=== PATIENT | female | born 1995 | race Caucasian/White ===

== ENCOUNTER 2020-05-07 01:15 | Day surgery (SDC) | payer BC, OTHER, SELFPAY ==
[2020-05-06 16:28] VITALS: BMI 27.1
--- NOTE | 2020-05-06 22:17 | P.HP_ITS ---
H&P: HPI History of Present Illness Chief complaint: Missed AB Narrative: 24 y/o G1 with LMP 03/04/20, putting her at 9 weeks gestation. She began to have heavy vaginal bleeding on 05/06/20, with cramping and passage of small clots. Ultrasound exam in the office demonstrates an intrauterine amnion and yolk sac, but no obvious embryo and no FHR. She is interested in surgical management of her problem. Review of Systems Review of Systems: All systems reviewed & are unremarkable except as noted in HPI and below PMFSH Family History Family History Grandparent Acute myocardial infarction Family history of malignant neoplasm Family history of Alzheimer's disease Family history of malignant neoplasm of breast in first degree relative Social History Social History Smoking status: Never smoker Alcohol intake: current Meds Home Medications and Allergies Home Medications Medication Instructions Recorded Confirmed Type No Home Medications 05/06/20 05/06/20 History Allergies Allergy/AdvReac Type Severity Reaction Status Date / Time latex Allergy Unknown Swelling Verified 05/06/20 16:23 Exam Const: Orientation/consciousness: patient oriented x3 Other: Well- developed, well-nourished female in no acute distress. Neck: Thyroid: thyroid normal Lymphatic: no lymphadenopathy noted (in neck, axilla or inguinal nodes) Resp: Effort & Inspection: normal respiratory effort Auscultation: clear to auscultation bilaterally Cardio: Rate: regular rate Rhythm: regular rhythm Heart sounds: S1 normal heart sound present and S2 normal heart sound present GI: Other: ABD: Soft, nontender, nondistended. No guarding or rebound tenderness. No hepatosplenomegaly. : General: Yes no CVA tenderness Other: External genitalia: normal female hair distribution, without lesion. Urethral meatus: no lesion, non prolapsed. Bladder: no mass, nontender Vagina: well-estrogenized, no cystocele or rectocele. Dark blood is noted. Cervix: closed to digital exam. Uterus: small, anteverted, freely mobile, nontender Adnexa: no mass or tenderness. Anus/perineum: no lesions, nontender Back/Spine/Pelvis: Back: no CVA tenderness Skin: General skin exam: normal color and no rashes or lesions noted Neuro: General: patient oriented x3 Extrem: Other: Extremities: nontender with no edema Psych: Mental Status: mental status grossly normal Affect: normal affect Assessment and Plan Assessment and plan (1) Incomplete spontaneous : Code(s): O03.4 - Incomplete spontaneous without complication Status: Acute Assessment and Plan: I offered her expectant management versus suction D&C. She prefers the latter. She understands risks of surgery to include risks of anesthesia, risks of pain, infection, bleeding, blood products, thromboembolic phenomena and damage to adjacent structures such as bowel, bladder, ureters, blood vessels and nerves. She understands all these risks and elects to proceed with surgery.
[2020-05-07 14:31] VITALS: BP 113/61; PULSE 76; RESP 16; TEMP 36.8; O2SAT 100
[2020-05-07] MEDS: LACTATED RINGERS 1,000 ML 30 ML IV CONT (14:45)
--- NOTE | 2020-05-07 15:01 | WPDHPUPDATE1 ---
History and Physical Update Update Date/Time: 05/07/20 15:01 History and Physical has been reviewed, including an updated exam of the patient. There are NO changes in the patient's condition. Risks, benefits, and alternatives have been discussed and questions answered. Patient agrees to proceed with procedure.
--- NOTE | 2020-05-07 15:01 | WPDANESEPPF ---
Anes - Initial Pre Proc Eval Procedure: Operation Date: 05/07/20 14:30 Proposed Procedures p Suction Dilation And Curettage - Milind Gómez MD Date/Time: 05/07/20 15:01 Surgeon: Milind Gmóez MD Pre Op Diagnosis: Missed AB Patient Data Age: 24 Gender: F Height: 1.63 m Weight: 71.67 kg Allergies Allergy/AdvReac Type Severity Reaction Status Date / Time latex Allergy Unknown Swelling Verified 05/06/20 16:23 Home Medications Medication Instructions Recorded Confirmed Type hydrocodone-acetaminophen [[place]] 1 tablet PO Q6H PRN #20 tablet 05/07/20 Rx Patient hx anesthesia problems: none Family hx anesthesia problems: none PMFSH Family History Family History Grandparent Acute myocardial infarction Family history of malignant neoplasm Family history of Alzheimer's disease Family history of malignant neoplasm of breast in first degree relative Social History Social History Smoking status: Never smoker Alcohol intake: current Anes - Eval Final PreProcedure Day of Procedure 05/07/20 15:01 Patient weight: overweight Heart: regular rate and rhythm Lungs: clear to auscultation and normal air movement Airway: Mallampati scale class 1 Neurological: alert and oriented Last oral intake: >/= 8 hours ASA classification: I Emergent: no Anesthetic plan: proceed Anesthesia type and monitoring: general GIVS and standard monitoring Informed Consent: The patient's anesthetic plan and its attendant risks and benefits were discussed with the patient/family/POA. Questions were solicited and answers provided to the satisfaction of the patient/family/POA.
[2020-05-07] MEDS: KETOROLAC 30 MG/ML VIAL (*BKC) IV PUSH (15:28)
--- NOTE | 2020-05-07 15:29 | P.OP_ITS ---
Procedure Note - Detailed Date of procedure: 05/07/20 Pre-op diagnosis: Missed AB Incomplete spontaneous Post-op diagnosis: same Procedure performed: Dilation and suction curettage Description of procedure: The patient was taken to the operating room where she was prepared and draped in the usual sterile fashion in the dorsal lithotomy position. The bladder was drained with a red rubber catheter. A sterile speculum was placed into the vagina. The anterior lip of the cervix was grasped with a single-tooth tenaculum. Ten mL of 1% lidocaine was administered in a paracervical block. The cervix was gently dilated using Hegar dilators until an 8mm dilator could be passed. The 8mm curved tip suction curette was advanced. Suction curettage was performed and products of conception were aspirated. Sha rp curettage was then performed until a good uterine cry was noted. A final pass with the suction curette was made. The tenaculum was removed. Hemostasis was excellent. Sponge, lap, needle and instrument counts were correct. The patient was taken to the recovery room in stable condition. I was present and scrubbed for the entire procedure. Implants: None Anesthesia: MAC and local (1% lidocaine) Surgeon: Milind Gómez MD Estimated blood loss (mL): 50 Drains: No Packing: No Pathology: yes (endometrial curettings) Complications: None Condition: stable Disposition: PACU Findings: The cervix was noted already to be dilated. Products of conception we re noted.
--- NOTE | 2020-05-07 15:34 | SUR.OPER ---
EBL:50cc
[2020-05-07 15:38] VITALS: BP 107/66; PULSE 76; RESP 12; TEMP 36.6; O2SAT 100
[2020-05-07 16:10] VITALS: BP 103/80; PULSE 72; RESP 16; O2SAT 100
[2020-05-07] MEDS: RHO(D) IMMUNE GLOBULIN 300 MCG SYRINGE IM (16:38)
[2020-05-07 16:40] VITALS: BP 108/53; PULSE 57; RESP 16
--- NOTE | 2020-05-07 17:24 | SUR.PHASEII ---
1630- instructions reviewed with pt. no c/o pain.
== END 2020-05-07 16:55 | disposition home or self-care (01) ==
PROVIDERS: PCP Family Medicine; Visit Provider Obstetrics & Gynecology
PROC: (CPT 59812; principal; 2020-05-07 14:30)
DX: O03.4 Incomplete spontaneous abortion without complication (principal)
CPT/HCPCS: 59812; 36415; 85461; 88305; 90384; A9270; J1885; J2250; J2704; J2790; J3010; J7120

== ENCOUNTER 2020-07-22 12:02 | Outpatient (CLI) | payer BC, OTHER, SELFPAY ==
--- NOTE | ~2020-07-22 | US_ITS ---
EXAMINATION: US OB <=14 wk fetus w TV DATE: 07/22/2020 13:03 INDICATION: Threatened spontaneous , first trimester TECHNIQUE: Real-time pelvic transabdominal and transvaginal ultrasound was performed. COMPARISON: None. FINDINGS: The uterus measures 7.8 x 6.1 x 4.4 cm. There is an intrauterine gestational sac. A yolk s ac is identified. heart motion is identified measuring 102 beats per minute (bpm) by M-mode Dop pler. The crown rump length measures 3 mm , which correlates with an estimated gestational age of 5 weeks and 5 day(s) (+/-) 3 day(s). The right ovary measures 1.6 x 1.4 x 1.3 cm. The left ovary measures 3.4 x 1.7 x 2.2 cm. There is nor mal vascular flow in the ovaries. There is no free fluid in the pelvis. IMPRESSION: 1. Live intrauterine with an estimated gestational age of 5 weeks and 5 day(s) (+/-) 3 day( s) and an estimated delivery date of 03/19/2021. Reviewed, dictated and finalized at location A. IMPRESSION: 1. Live intrauterine with an estimated gestational age of 5 weeks and 5 day(s) (+/-) 3 day(s) and an estimated delivery date of 03/19/2021.
== END 2020-07-22 12:03 | disposition home or self-care (01) ==
PROVIDERS: Visit Provider Obstetrics & Gynecology
DX: O20.0 Threatened abortion (principal); Z3A.01 Less than 8 weeks gestation of pregnancy
CPT/HCPCS: 76801; 76817

== ENCOUNTER 2020-07-29 15:22 | Outpatient (RCR) | payer BC, OTHER, SELFPAY ==
[2020-07-30] MEDS: RHO(D) IMMUNE GLOBULIN 300 MCG SYRINGE IM (12:09)
== END 2020-10-27 23:59 | disposition home or self-care (01) ==
LOC: ANHLAB 15:22
PROVIDERS: Visit Provider Obstetrics & Gynecology
DX: O03.4 Incomplete spontaneous abortion without complication (principal); O36.0990 Maternal care for other rhesus isoimmunization, unspecified trimester, not applicable or unspecified; Z3A.00 Weeks of gestation of pregnancy not specified
CPT/HCPCS: 36415; 84702; 85461; 86880; 90384; 96372; J2790

== ENCOUNTER 2021-06-04 13:07 | Outpatient (RCR) | payer BC, SELFPAY ==
[2021-06-05] MEDS: RHO(D) IMMUNE GLOBULIN 300 MCG/2 ML SYRINGE IM (12:50)
== END 2021-09-02 23:59 | disposition home or self-care (01) ==
LOC: ANHLAB 13:07
PROVIDERS: Visit Provider Obstetrics & Gynecology
DX: Z29.13 Encounter for prophylactic Rho(D) immune globulin (principal); O36.0190 Maternal care for anti-D [Rh] antibodies, unspecified trimester, not applicable or unspecified; Z3A.00 Weeks of gestation of pregnancy not specified
CPT/HCPCS: 36415; 85461; 90384; 96372; J2790

== ENCOUNTER 2021-08-14 18:43 | Outpatient (CLI) | payer BC, SELFPAY ==
[2021-08-14 19:03] VITALS: BP 144/85; PULSE 114
[2021-08-14 19:16] VITALS: BP 149/75; PULSE 107
[2021-08-14 19:31] VITALS: BP 132/83; PULSE 105
[2021-08-14 19:52] VITALS: BP 132/83; PULSE 107
== END 2021-08-14 19:48 | disposition home or self-care (01) ==
LOC: ANHOBOP 18:47 → ANHLDR 18:48
PROVIDERS: Visit Provider Obstetrics & Gynecology
DX: O42.90 Premature rupture of membranes, unspecified as to length of time between rupture and onset of labor, unspecified weeks of gestation (principal); Z3A.00 Weeks of gestation of pregnancy not specified
CPT/HCPCS: 59025; 84112; 99199

== ENCOUNTER 2021-08-18 07:04 | Inpatient (IN) | payer BC, SELFPAY ==
[2021-08-18] VITALS (120 sets, daily range): BP systolic 83–201; BP diastolic 44–148; PULSE 46–161; RESP 18; TEMP 35.7–36.9; O2SAT 91–100
--- NOTE | 2021-08-18 07:31 | LDADM ---
This patient, Mihcaela Sun, was admitted to Labor/Delivery/Recovery 103 on 08/18/21 at 07:04. Plans for labor, pain management and were discussed with patient. Patient/family oriented to hospital policies and general routines including ID bracelet, bed and alarms, visiting hours, pain management, procedures, bathroom and other care routines, personal items, smoking policy, room service/diet and guest tray routines, security routines, and visiting hours. Patient/Family are encouraged to report perceived risks to care and to ask questions if they do not understand what they are told or what they should do. See OBIX for further documentation.
[2021-08-18 07:49] LABS: Basophils Percent Auto 0.3 % (0.2-1.2); Eosinophils Absolute Auto 0.1 K/mm3 (0-0.3); Eosinophils Percent Auto 1.3 % (0-4.4); Hematocrit 36.2 % (37.0-47.0); Hemoglobin 11.9 g/dL (12.0-15.0); Immature Granulocyte Absolute 0.13 K/mm3 (0.00-0.031); Immature Granulocyte Percent A 1.3 % (0-0.5); Lymphocytes Absolute Auto 2.48 K/mm3 (0.9-3.2); Lymphocytes Percent Auto 25.3 % (18.3-44.2); Mean Corpuscular HGB Conc 32.9 g/dl (32-36); Mean Corpuscular Hemoglobin 29.2 pg (26-34); Mean Corpuscular Volume 88.7 fl (80-100); Monocytes Absolute Auto 0.6 K/mm3 (0.1-0.6); Monocytes Percent Auto 5.7 % (2.6-8.5); Neutrophils Absolute Auto 6.5 K/mm3 (1.3-6.7); Neutrophils Percent Auto 66.1 % (45.5-73.1); Platelet Count Result 161 k/mm3 (150-375); Red Blood Count 4.08 M/mm3 (4.2-5.4); Red Cell Distribution Width 13.1 % (11.5-14.5); White Blood Count 9.8 K/mm3 (4.5-10.0)
[2021-08-18] MEDS: LACTATED RINGERS 1,000 ML 125 ML IV CONT ×2 (07:49→10:40)
[2021-08-18] MEDS: OXYTOCIN 30 UNITS/NS 500 ML 30 UNITS/500 ML BAG 125 UNITS IV CONT ×2 (07:50→15:40)
--- NOTE | 2021-08-18 09:00 | WPDOBADMIT ---
Obstetrics - Admit Note Admission Note: record reviewed. Additions to the history and/or subsequent changes in the physical findings follow. 25 y/o at 39 3/7 weeks here for induction of labor. GBS neg. AVSS NST reactive TOCO: irregular contractions ABD soft, nontender, gravid, vertex EXT nontender Cervix 4/50/-2. AROM with clear fluid. Vertex. A: IUP a term with favorable cervix. P: Oxytocin. Anticipate .
[2021-08-18 10:01] LABS: Rapid Plasma Reagin Non-Reactive (NonReactive)
--- NOTE | 2021-08-18 11:55 | WPDANESEPP ---
Anes - Eval Pre Procedure Procedure: Labor Epidural Date/Time: 08/18/21 11:55 Surgeon: Bolivar Preop Diagnosis: Labor Pain Pre Op Diagnosis: iol Patient Data Age: 25 Gender: F Height: 1.63 m Weight: 110 kg Last Vital Signs Temp 36.9 C 08/18/21 07:30 Pulse 72 08/18/21 11:46 BP 100/48 L 08/18/21 11:46 Pulse Ox 100 08/18/21 11:51 Allergies Allergy/AdvReac Type Severity Reaction Status Date / Time latex Allergy Unknown Swelling Verified 05/07/20 15:07 Home Medications Medication Instructions Recorded Confirmed Type PNV cmb#95-ferrous fumarate-FA 1 tablet PO DAILY 07/25/21 08/18/21 History [] Laboratory Tests 08/18/21 08/18/21 08/18/21 07:29 07:29 07:29 WBC 9.8 K/mm3 K/mm3 (4.5-10.0) RBC 4.08 M/mm3 L M/mm3 (4.2-5.4) Hgb 11.9 g/dL L g/dL (12.0-15.0) Hct 36.2 % L % (37.0-47.0) MCV 88.7 fl fl (80-100) MCH 29.2 pg pg (26-34) MCHC 32.9 g/dl g/dl (32-36) RDW 13.1 % % (11.5-14.5) Plt Count 161 k/mm3 k/mm3 (150-375) MPV 12.0 fl H fl (7.4-10.4) Immature Gran % (Auto) 1.3 % H % (0-0.5) Neut % (Auto) 66.1 % % (45.5-73.1) Lymph % (Auto) 25.3 % % (18.3-44.2) [place] % (Auto) 5.7 % % (2.6-8.5) Eos % (Auto) 1.3 % % (0-4.4) Baso % (Auto) 0.3 % % (0.2-1.2) Lymph # (Auto) 2.48 K/mm3 K/mm3 (0.9-3.2) [place] # (Auto) 0.6 K/mm3 K/mm3 (0.1-0.6) Eos # (Auto) 0.1 K/mm3 K/mm3 (0-0.3) Baso # (Auto) 0.0 K/mm3 K/mm3 (0.0-0.1) Abs Immat Gran (auto) 0.13 K/mm3 H K/mm3 (0.00-0.031) Absolute Neuts (auto) 6.5 K/mm3 K/mm3 (1.3-6.7) Absolute Nucleated RBC 0.0 K/mm3 K/mm3 (0.0-0.012) Nucleated RBC % 0.0 % % (0.0-0.2) RPR Non-reactive (NonReactive) Blood Type O Negative Antibody Screen Negative : gestational age (, DAVIN 08/22/21) Patient hx anesthesia problems: none Family hx anesthesia problems: none Results Review: All pre-operative results and documents have been reviewed as part of the pre-operative evaluation. [facility] Family History Family History Grandparent Acute myocardial infarction Family history of malignant neoplasm Family history of Alzheimer's disease Family history of malignant neoplasm of breast in first degree relative Social History Social History Smoking status: Never smoker Alcohol intake: current Substance use: never Spiritual care concerns: No Exam Day of Procedure 08/18/21 11:55 Patient weight: obese Heart: regular rate and rhythm Lungs: normal air movement Airway: Mallampati scale class II Neurological: alert and oriented
--- NOTE | 2021-08-18 12:23 | PM.OBPNLAB ---
Pain Control Date/time seen: 08/18/21 12:23 Comments: Comfortable with epidural. Pelvic Exam Dilation (cm): 6 Effacement (%): 80 station: -1 Contractions Contraction frequency: 3 Contraction pattern: Regular Status status: Category l Assessment and Plan Comments: IUPC placed. Continue labor.
--- NOTE | 2021-08-18 15:22 | PM.OBPRVD ---
OB - Delivery Note Procedure Delivery date: 08/18/21 Procedure: Induction of labor with Induction method: AROM and per pitocin protocol Delivery monitor: external FHT, external uterine and internal uterine Route of delivery: Laceration Description: Perineal - 2nd Degree Delivery repair: vicryl (3-0) Specimen: Yes (cord blood) Quantitative Blood Loss (ml): 220 Anesthesia type: Epidural Disposition: PACU Complications: None Narrative: 25 y/o at 39 3/7 weeks gestation who presented to the hospital for induction of labor. Oxytocin was administered intravenously. Amniotomy was performed with return of clear fluid. She received an epidural for pain control. Her labor progressed and her cervix dilated completely. She pushed with good effort and delivered the 's head to the perineum, followed by the body. The nose and mouth were bulb suctioned. After a delay, the cord was clamped and cut. The infant was handed off the field. Cord blood was collected. The placenta delivered spontaneously and was grossly normal in appearance. The usual 3 vessel cord was noted. A second degree midline perineal laceration was sustained. This was reapproximated using 3 0 Vicryl in the usual layered fashion. Excellent hemostasis resulted as did excellent reapproximation of the normal anatomy. Needle and instrument counts were correct. The patient was taken to recovery room in stable condition. The went to the nursery in stable condition. I was present and scrubbed for the entire delivery. Baby Date of : 08/18/21 Time of : 15:00 Weeks of gestation at delivery: 39 gender: Male Weight (pounds): 9 Weight (ounces): 4 presentation: vertex position: Left Occiput Anterior Placenta delivery description: Spontaneous and Normal Configuration cord vessel description: 3 Vessels and Delayed Cord Clamping score one minute: 8 score five minutes: 9
--- NOTE | 2021-08-18 15:24 | PM.OBDSVD ---
DS: Admitting Diagnosis Discharge Date 08/20/21 Admitting Diagnosis IUP at 39 3/7 weeks Favorable cervix DS: Discharge Diagnosis Discharge Diagnosis (1) (normal spontaneous vaginal delivery): Code(s): O80 - Encounter for full-term uncomplicated delivery Status: Acute OB - DS: Summary OB Procedures : None OB Procedures Intrapartum: Spontaneous Vag Delivery OB Procedures: : RHo (D) lg DS: Data Data Completed and Pending Labs on day of discharge: Labs from last 24 hours 08/18/21 08/18/21 08/18/21 07:29 07:29 07:29 WBC 9.8 RBC 4.08 L Hgb 11.9 L Hct 36.2 L MCV 88.7 MCH 29.2 MCHC 32.9 RDW 13.1 Plt Count 161 MPV 12.0 H Immature Gran % (Auto) 1.3 H Neut % (Auto) 66.1 Lymph % (Auto) 25.3 [place] % (Auto) 5.7 Eos % (Auto) 1.3 Baso % (Auto) 0.3 Lymph # (Auto) 2.48 [place] # (Auto) 0.6 Eos # (Auto) 0.1 Baso # (Auto) 0.0 Abs Immat Gran (auto) 0.13 H Absolute Neuts (auto) 6.5 Absolute Nucleated RBC 0.0 Nucleated RBC % 0.0 RPR Non-reactive Blood Type O Negative Antibody Screen Negative Discharge Plan Discharge Attending physician on discharge: Milind Gómez Discharging Clinician: Milind Gómez Patient Disposition: Home, Self-Care Activity: pelvic rest Diet: regular Discharge Instructions: Call or return if temperature above 100.4? F, increased abdominal pain, increased vaginal bleeding or any new problems. Stand Alone Forms: General Discharge Information Follow-up/Referrals: Milind Gómez MD [Physician] - 6 Weeks Discharge Medications: New ibuprofen 600 mg tablet 600 mg PO Q6H PRN (Reason: cramps) Qty: 30 RF: 0 ferrous sulfate 325 mg (65 mg iron) tablet 325 mg PO DAILY Qty: 30 RF: 0 No Action PNV cmb#95-ferrous fumarate-FA [] 28 mg iron- 800 mcg Tablet 1 tablet PO DAILY RF: 0 Date of admission: 08/18/21 07:04 Primary Care Provider: PHYSICIAN,OPHTHALMIC TECHNOLOGIST Admitting Provider: Milind Gómez Attending physician on admission: Milind Gómez Condition: Stable
[2021-08-18] MEDS: BENZOCAINE 20% AER SPR (*SP) 56 GM CAN 1 SPRAY TOPICAL (17:27)
[2021-08-18] MEDS: WITCH HAZEL 40 PADS 1 PAD TOPICAL (17:27)
[2021-08-18] MEDS: IBUPROFEN 600 MG TABLET PO (17:32)
[2021-08-18] MEDS: miSOPROStol 200 MCG TABLET 800 MCG RECTAL (18:08)
[2021-08-19 05:20] VITALS: BP 117/68; PULSE 92; RESP 18; TEMP 36.9; O2SAT 100
[2021-08-19 05:21] LABS: Hematocrit 28.5 % (37.0-47.0); Hemoglobin 9.3 g/dL (12.0-15.0)
[2021-08-19] MEDS: IBUPROFEN 600 MG TABLET PO ×4 (05:25→23:37)
[2021-08-19 08:55] VITALS: BP 114/67; PULSE 82; RESP 18; TEMP 36.6
[2021-08-19] MEDS: POLYSACCHARIDE IRON COMPLEX 150 MG CAPSULE PO ×2 (12:12→17:49)
[2021-08-19] MEDS: DOCUSATE SODIUM 100 MG CAPSULE PO ×2 (12:12→17:49)
[2021-08-19 12:15] VITALS: BP 113/63; PULSE 108; RESP 18
--- NOTE | 2021-08-19 13:37 | WPDANLDPN2 ---
Anes-Prog Note L&D Date/Time: 08/19/21 13:37 Comfortable throughout: labor and delivery Neuraxial method: epidural Epidural/Spinal procedure site: clean & non-tender Neuro status: Neuro function grossly intact. Cardiovascular status: normal Respiratory status: normal Airway patency: baseline Mental status: baseline Post-Op hydration status: normal Vital Signs: Last Vital Signs Temp 36.6 C 08/19/21 08:55 Pulse 108 H 08/19/21 12:15 Resp 18 08/19/21 12:15 BP 113/63 08/19/21 12:15 Pulse Ox 100 08/19/21 05:20 Pain score (VAS): no complaints I/O: Intake & Output 08/18/21 08/19/21 08/19/21 23:59 07:59 15:59 Output Total 886 Balance -886 Post-procedural complaints: none Patient feedback: Patient satisfied with anesthetic care.
--- NOTE | 2021-08-19 13:58 | PM.OBPNVD ---
OB - PN: Subj Subjective Date/time seen: 08/19/21 13:58 Narrative: Pain OK. Would like circumcision for son. OB - PN: Obj Data Labs CBC & Chem 7: 08/19/21 05:05 Labs: Laboratory Results - last 24 hr 08/19/21 08/19/21 05:05 05:05 Hgb 9.3 L Hct 28.5 L Blood Type O Negative Antibody Screen Negative Screen Negative Baby's Blood Type O pos Baby's MINERVA Negative Doses of RhIg Required 1 OB - PN A/P Plan Comments: A: PPD#1, doing well. P: Routine care. Reviewed circ. Exam Psych: Other: AVSS ABD soft, nontender, fundus firm EXT nontender
[2021-08-19] MEDS: RHO(D) IMMUNE GLOBULIN 300 MCG/2 ML SYRINGE IM (17:48)
[2021-08-19 20:00] VITALS: BP 124/75; PULSE 79; RESP 18; TEMP 36.4; O2SAT 100
[2021-08-20 08:20] VITALS: BP 122/70; PULSE 89; RESP 18; TEMP 37; O2SAT 100
--- NOTE | 2021-08-20 08:25 | PM.OBPNVD ---
OB - PN: Subj Subjective Date/time seen: 08/20/21 08:25 Narrative: Pain OK. Would like to go home. OB - PN: Obj Data Labs CBC & Chem 7: 08/19/21 05:05 Labs: Laboratory Results - last 24 hr 08/19/21 05:05 Blood Type O Negative Antibody Screen Negative Screen Negative Baby's Blood Type O pos Baby's MINERVA Negative Doses of RhIg Required 1 OB - PN A/P Plan Comments: A: PPD#2, doing well. P: Home to f/u 6 weeks. Exam Psych: Other: AVSS ABD soft, nontender, fundus firm EXT nontender
[2021-08-20 09:30] VITALS: PULSE 89; RESP 18; O2SAT 100
[2021-08-20] MEDS: DOCUSATE SODIUM 100 MG CAPSULE PO (11:15)
[2021-08-20] MEDS: POLYSACCHARIDE IRON COMPLEX 150 MG CAPSULE PO (11:15)
[2021-08-20] MEDS: IBUPROFEN 600 MG TABLET PO (11:15)
[2021-08-21 11:00] VITALS: BP 123/71; PULSE 104; RESP 20; TEMP 36.9; O2SAT 100
== END 2021-08-20 13:15 | disposition home or self-care (01) | DRG 807 ==
LOC: ANHLDR 15:25 → ANHOB2 20:45
PROVIDERS: Admitting Provider Obstetrics & Gynecology; Visit Provider Obstetrics & Gynecology
DX: O76 Abnormality in fetal heart rate and rhythm complicating labor and delivery (principal); Z37.0 Single live birth; O70.1 Second degree perineal laceration during delivery; Z3A.39 39 weeks gestation of pregnancy
CPT/HCPCS: 36415; 85014; 85018; 85025; 85461; 86592; 86850; 86900; 86901; 90384; A9270; J2590; J2790; J7120

== ENCOUNTER 2023-11-21 14:33 | Outpatient (RCR) | payer BC, SELFPAY ==
[2023-11-21] MEDS: RHO(D) IMMUNE GLOBULIN 300 MCG/2 ML SYRINGE IM (14:56)
== END 2024-02-17 23:59 | disposition home or self-care (01) ==
LOC: ANHLAB 14:33
PROVIDERS: Visit Provider Obstetrics & Gynecology
DX: Z29.13 Encounter for prophylactic Rho(D) immune globulin (principal); O36.0190 Maternal care for anti-D [Rh] antibodies, unspecified trimester, not applicable or unspecified; Z3A.00 Weeks of gestation of pregnancy not specified
CPT/HCPCS: 36415; 85461; 86850; 86900; 86901; 90384; 96372; J2790

== ENCOUNTER 2024-02-02 05:07 | Inpatient (IN) | payer BC, SELFPAY ==
[2024-02-02] VITALS (227 sets, daily range): BP systolic 41–165; BP diastolic 23–104; PULSE 52–184; RESP 18–20; TEMP 36.1–37; O2SAT 77–100; BMI 37.8
--- NOTE | 2024-02-02 05:28 | PM.IMHP ---
H&P: HPI History of Present Illness Date/Time: 02/02/24 05:28 Chief Complaint: gestational hypertension Narrative: 28-year-old 4 para were whose EDC is 02/04/2024 confirmed by early ultrasound presents at 3957 weeks gestation for induction of labor secondary to elevated blood pressures. appeared to be uncomplicated prior to this. PIH labs will be drawn. She has no headache or blurred vision or any other PHARMACY ASSISTANT sites [facility] Family History Family History Grandparent Family history of malignant neoplasm Acute myocardial infarction Family history of Alzheimer's disease Family history of malignant neoplasm of breast in first degree relative Father Skin cancer (melanoma) Social History Social History Smoking status: Never smoker Alcohol intake: current Substance use: never Spiritual care concerns: No Meds Home Medications and Allergies Home Medications Medication Instructions Recorded Confirmed Type vit no.95-ferrous 1 tablet PO DAILY 07/25/21 01/10/24 History fumarate 28 mg-folic acid 800 mcg tablet () Allergies Allergy/AdvReac Type Severity Reaction Status Date / Time latex Allergy Unknown Swelling Verified 01/10/24 12:39 Vital Signs Vital Signs - 24 hr 02/02/24 05:26 Pulse Rate 96 Blood Pressure 133/79 Exam Const: General: cooperative, healthy appearing and comfortable Nutritional Appearance: average body habitus Orientation/consciousness: oriented to person, oriented to place and oriented to time Resp: Effort & Inspection: normal respiratory effort Cardio: Rate: regular rate Rhythm: regular rhythm Heart sounds: S1 normal heart sound present and S2 normal heart sound present GI: Inspection: normal to inspection ( gravid soft uterus) : External Female Exam: normal external appearance Speculum Exam - Vagina: normal appearance of the vagina Speculum Exam - Cervix: normal appearance of the cervix ( cervix 3/75/-2. FHTs reassuring) Assessment and Plan Assessment and plan (1) Term : Code(s): Z34.90 - Encounter for supervision of normal , unspecified, unspecified trimester Status: Acute (2) Gestational hypertension: Code(s): O13.9 - Gestational [-induced] hypertension without significant proteinuria, unspecified trimester Status: Acute Plan medical induction of. PIH labs will be drawn. Spontaneous vaginal delivery is expected. She is an epidural candidate
[2024-02-02 06:02] LABS: Basophils Percent Auto 0.1 % (0.2-1.2); Eosinophils Absolute Auto 0.1 K/mm3 (0-0.3); Hematocrit 31.3 % (37.0-47.0); Hemoglobin 10.5 g/dL (12.0-15.0); Immature Granulocyte Absolute 0.11 K/mm3 (0.00-0.031); Immature Granulocyte Percent A 1.4 % (0-0.5); Lymphocytes Absolute Auto 2.02 K/mm3 (0.9-3.2); Lymphocytes Percent Auto 24.9 % (18.3-44.2); Mean Corpuscular HGB Conc 33.5 g/dl (32-36); Mean Corpuscular Hemoglobin 31.1 pg (26-34); Mean Corpuscular Volume 92.6 fl (80-100); Monocytes Absolute Auto 0.7 K/mm3 (0.1-0.6); Monocytes Percent Auto 8.3 % (2.6-8.5); Neutrophils Absolute Auto 5.2 K/mm3 (1.3-6.7); Neutrophils Percent Auto 64.3 % (45.5-73.1); Platelet Count Result 128 k/mm3 (150-375); Red Blood Count 3.38 M/mm3 (4.2-5.4); Red Cell Distribution Width 13.2 % (11.5-14.5); White Blood Count 8.1 K/mm3 (4.5-10.0)
[2024-02-02 06:15] LABS: Alanine Aminotransferase 15 U/L (6-35); Albumin Level 3.5 g/dL (3.5-5.1); Alkaline Phosphatase 180 U/L (38-126); Anion Gap 5 mmol/L (8-16); Aspartate Amino Transferase 22 U/L (14-36); Bilirubin,Total 0.3 mg/dL (0.2-1.3); Blood Urea Nitrogen 10 mg/dL (7-17); Calcium 9.4 mg/dL (8.4-10.2); Carbon Dioxide 23 mmol/L (22-30); Chloride 108 mmol/L (98-107); Estimated Glomerular Filt Rate > 60; Glucose 97 mg/dL (65-110); Potassium 3.7 mmol/L (3.4-5.0); Sodium 136 mmol/L (137-145)
[2024-02-02] MEDS: LACTATED RINGERS 1,000 ML 125 ML IV CONT ×4 (06:18→16:17)
[2024-02-02] MEDS: OXYTOCIN 30 UNITS/NS 500 ML 30 UNITS/500 ML BAG IV CONT (06:19)
--- NOTE | 2024-02-02 06:23 | LDADM ---
This patient, Michaela Sun, was admitted to Labor/Delivery/Recovery 102 on 02/02/24 at 05:07. Plans for labor, pain management and were discussed with patient. Patient/family oriented to hospital policies and general routines including ID bracelet, bed and alarms, visiting hours, pain management, procedures, bathroom and other care routines, personal items, smoking policy, room service/diet and guest tray routines, security routines, and visiting hours. Patient/Family are encouraged to report perceived risks to care and to ask questions if they do not understand what they are told or what they should do. See OBIX for further documentation.
--- NOTE | 2024-02-02 06:45 | WPDANESEPP ---
Anes - Eval Pre Procedure Procedure: labor epidural Date/Time: 02/02/24 06:45 Surgeon: nataliia Preop Diagnosis: pain during labor Pre Op Diagnosis: IOL Patient Data Age: 28 Gender: F Height: 1.63 m Weight: 100 kg Last Vital Signs Pulse 96 02/02/24 06:30 BP 112/72 02/02/24 06:30 O2 Del Method Room Air 02/02/24 06:21 Allergies Allergy/AdvReac Type Severity Reaction Status Date / Time latex Allergy Unknown Swelling Verified 02/02/24 06:29 Home Medications Medication Instructions Recorded Confirmed Type vit no.95-ferrous 1 tablet PO DAILY 07/25/21 01/10/24 History fumarate 28 mg-folic acid 800 mcg tablet () Laboratory Tests 02/02/24 05:52 WBC 8.1 K/mm3 (4.5-10.0) RBC 3.38 L M/mm3 (4.2-5.4) Hgb 10.5 L g/dL (12.0-15.0) Hct 31.3 L % (37.0-47.0) MCV 92.6 fl (80-100) MCH 31.1 pg (26-34) MCHC 33.5 g/dl (32-36) RDW 13.2 % (11.5-14.5) Plt Count 128 L k/mm3 (150-375) MPV 12.0 H fl (7.4-10.4) Immature Gran % (Auto) 1.4 H % (0-0.5) Neut % (Auto) 64.3 % (45.5-73.1) Lymph % (Auto) 24.9 % (18.3-44.2) [place] % (Auto) 8.3 % (2.6-8.5) Eos % (Auto) 1.0 % (0-4.4) Baso % (Auto) 0.1 L % (0.2-1.2) Lymph # (Auto) 2.02 K/mm3 (0.9-3.2) [place] # (Auto) 0.7 H K/mm3 (0.1-0.6) Eos # (Auto) 0.1 K/mm3 (0-0.3) Baso # (Auto) 0.0 K/mm3 (0.0-0.1) Abs Immat Gran (auto) 0.11 H K/mm3 (0.00-0.031) Absolute Neuts (auto) 5.2 K/mm3 (1.3-6.7) Absolute Nucleated RBC 0.000 K/mm3 (0.0-0.012) Nucleated RBC % 0.0 % (0.0-0.2) % Immature Plt Fraction 9.0 % (0.9-11.2) Sodium 136 L mmol/L (137-145) Potassium 3.7 mmol/L (3.4-5.0) Chloride 108 H mmol/L (98-107) Carbon Dioxide 23 mmol/L (22-30) Anion Gap 5 L mmol/L (8-16) BUN 10 mg/dL (7-17) Creatinine 0.40 L mg/dL (0.7-1.0) Estim Creat Clear Calc Not Reportable Estimated GFR > 60 (59 - ) Glucose 97 mg/dL (65-110) Uric Acid 4.0 mg/dL (2.5-7.5) Calcium 9.4 mg/dL (8.4-10.2) Total Bilirubin 0.3 mg/dL (0.2-1.3) AST 22 U/L (14-36) ALT 15 U/L (6-35) Alkaline Phosphatase 180 H U/L (38-126) Total Protein 7.0 g/dL (6.3-8.2) Albumin 3.5 g/dL (3.5-5.1) RPR Pending Blood Type O Negative Antibody Screen Pending Patient hx anesthesia problems: none Family hx anesthesia problems: none Results Review: All pre-operative results and documents have been reviewed as part of the pre-operative evaluation. [facility] Family History Family History Grandparent Family history of malignant neoplasm Acute myocardial infarction Family history of Alzheimer's disease Family history of malignant neoplasm of breast in first degree relative Father Skin cancer (melanoma) Social History Social History Smoking status: Never smoker Alcohol intake: current Substance use: never Do You Feel Safe in your Home?: Yes Lack of Transportation: No Lack of Food: Never True Current Housing: I Have Housing Concerned About Future Housing: No Difficulty Paying Gas/Electric Bills: No Difficulty Paying for Meds: No Currently Unemployed: No Education: Bachelor's Degree Difficulty w/ Childcare or Family Care: No Spiritual care concerns: No Exam Day of Procedure 02/02/24 06:45
[2024-02-02 07:33] LABS: Rapid Plasma Reagin Non-Reactive (NonReactive)
[2024-02-02] MEDS: PHENYLEPHRINE 1,000 MCG/10 ML SYRINGE 100 MCG IV PUSH ×5 (09:58→16:28)
[2024-02-02] MEDS: ePHEDrine sulfate INJ 50 MG/ML AMPUL IV PUSH (11:22)
[2024-02-02] MEDS: ONDANSETRON INJ 4 MG/2 ML VIAL IV PUSH (11:35)
--- NOTE | 2024-02-02 11:50 | PM.OBPNLAB ---
Pain Control Date/time seen: 02/02/24 11:50 Pain control: tolerating well and epidural Pelvic Exam Dilation (cm): 4 Effacement (%): 80 station: -1 Amniotic membrane status: Leaking Contractions Monitor mode: Internal
[2024-02-02] MEDS: LORATADINE 10 MG TABLET PO (12:07)
--- NOTE | 2024-02-02 16:23 | P.PCNOB_ITS ---
OB - Vaginal Delivery Note Procedure Delivery date: 02/02/24 Events: Gestational Hypertension Induction method: AROM Delivery augmentation: Pitocin Delivery monitor: External FHT and Internal Uterine Route of delivery: Episiotomy description: None Laceration Description: None Specimen: No Quantitative Blood Loss (ml): 61 Anesthesia type: Epidural Disposition: Floor Complications: No immediate complications [place] Baby Date of : 02/02/24 Time of : 16:10 Weeks of gestation at delivery: 39 Infant gender: Male presentation: vertex position: Right Occiput Anterior Placenta delivery description: Spontaneous Cord Vessel Description: 3 Vessels score one minute: 9 score five minutes: 9
--- NOTE | 2024-02-02 16:25 | PM.DS ---
DS: Admitting Diagnosis Discharge Date 02/03/2024 Admitting Diagnosis She will hypertension/ term DS: Discharge Diagnosis Discharge Diagnosis (1) Gestational hypertension: Code(s): O13.9 - Gestational [-induced] hypertension without significant proteinuria, unspecified trimester Status: Acute (2) Term : Code(s): Z34.90 - Encounter for supervision of normal , unspecified, unspecified trimester Status: Acute DS: Summary Hospital Course Reason for hospitalization: patient was admitted on 02/02/2024 for induction of labor secondary to elevated blood pressures. She underwent spontaneous vaginal delivery with epidural anesthesia Hospital Course: her hospital course thereafter was unremarkable. She remained afebrile. She was up, voiding without difficulty, eating regular diet, ambulating, generally without Time Spent with Patient Time attestation: Total time spent providing and/or coordinating discharge services: Exam Const: General: cooperative, healthy appearing and comfortable Nutritional Appearance: average body habitus Orientation/consciousness: oriented to person, oriented to place and oriented to time Resp: Effort & Inspection: normal respiratory effort Cardio: Rate: regular rate Rhythm: regular rhythm Heart sounds: S1 normal heart sound present and S2 normal heart sound present GI: Inspection: normal to inspection ( fundus firm below the umbilicus) DS: Data Data Completed and Pending Labs on day of discharge: Labs from last 24 hours 02/02/24 05:52 WBC 8.1 RBC 3.38 L Hgb 10.5 L Hct 31.3 L MCV 92.6 MCH 31.1 MCHC 33.5 RDW 13.2 Plt Count 128 L MPV 12.0 H Immature Gran % (Auto) 1.4 H Neut % (Auto) 64.3 Lymph % (Auto) 24.9 [place] % (Auto) 8.3 Eos % (Auto) 1.0 Baso % (Auto) 0.1 L Lymph # (Auto) 2.02 [place] # (Auto) 0.7 H Eos # (Auto) 0.1 Baso # (Auto) 0.0 Abs Immat Gran (auto) 0.11 H Absolute Neuts (auto) 5.2 Absolute Nucleated RBC 0.000 Nucleated RBC % 0.0 % Immature Plt Fraction 9.0 Sodium 136 L Potassium 3.7 Chloride 108 H Carbon Dioxide 23 Anion Gap 5 L BUN 10 Creatinine 0.40 L Estim Creat Clear Calc Not Reportable Estimated GFR > 60 Glucose 97 Uric Acid 4.0 Calcium 9.4 Total Bilirubin 0.3 AST 22 ALT 15 Alkaline Phosphatase 180 H Total Protein 7.0 Albumin 3.5 RPR Non-reactive Blood Type O Negative Antibody Screen Positive Antibody Identification Inconclusive Antigen Identification TNP MINERVA, IgG Interpret Not Performed MINERVA, Poly Interpret Negative MINERVA, Complement Interp Not Performed Discharge Plan Discharge Attending physician on discharge: Igor Yeager Discharging Clinician: Igor Yeager Patient Disposition: Home, Self-Care Activity: may shower, may drive after 2 weeks and pelvic rest Diet: heart healthy Wound Care Instructions: follow printed instructions Patient Instructions: Antibiotic Form Stand Alone Forms: General Discharge Information Follow-up/Referrals: Igor Yeager MD [Physician] - Milind Gómez MD [Physician] - Discharge Medications: Continued PNV [id number] [] 28 mg iron- 800 mcg Tablet 1 tablet PO DAILY Date of admission: 02/02/24 05:07 Primary Care Provider: PHYSICIAN,PRICING ANALYST Admitting Provider: Milind Gómez Attending physician on admission: Milind Gómez Condition: Stable
[2024-02-02] MEDS: OXYTOCIN 30 UNITS/NS 500 ML 30 UNITS/500 ML BAG 125 UNITS IV CONT (16:39)
[2024-02-02] MEDS: BENZOCAINE 20% AER SPR (*SP) 56 GM CAN 1 SPRAY TOPICAL (19:11)
[2024-02-02] MEDS: WITCH HAZEL 40 PADS 1 PAD TOPICAL (19:11)
--- NOTE | 2024-02-02 19:20 | PC.NURSE ---
Patient transferred to post room #[id number] via ( W/C ). Support person present. Oriented to unit, room, information board, rooming in, admission packet and security measures. Patient verbalizes understanding.
[2024-02-02] MEDS: IBUPROFEN 600 MG TABLET PO (19:50)
[2024-02-02] MEDS: ACETAMINOPHEN 325 MG TABLET 650 MG PO (20:40)
[2024-02-03] MEDS: IBUPROFEN 600 MG TABLET PO ×2 (03:00→12:35)
[2024-02-03 06:12] LABS: Hematocrit 32.1 % (37.0-47.0); Hemoglobin 10.5 g/dL (12.0-15.0)
--- NOTE | 2024-02-03 06:43 | PM.OBPNVD ---
OB - PN: Subj Subjective Date/time seen: 02/03/24 06:43 Patient comments: no complaints and pain well controlled baby status: doing well and nursing well OB - PN: Obj Data Labs 02/03/24 05:40 02/02/24 05:52 Labs: Laboratory Results - last 24 hr 02/02/24 02/03/24 05:52 05:40 Hgb 10.5 L Hct 32.1 L RPR Non-reactive Blood Type O Negative Antibody Screen Positive Antibody Identification Inconclusive Antigen Identification TNP [place]ERVA, IgG Interpret Not Performed MINERVA, Poly Interpret Negative MINERVA, Complement Interp Not Performed OB - PN A/P Plan day: 1 Plan: routine care Time Spent With Patient Time: Total time spent is greater than 50% in coordination of care (as documented) at patient's floor/unit and/or counseling patient: Time with patient: less than 15 minutes Exam Const: General: cooperative, healthy appearing and comfortable Nutritional Appearance: average body habitus Orientation/consciousness: oriented to person, oriented to place and oriented to time Chest: Chest palpation & inspection: normal inspection of the chest Resp: Auscultation: clear to auscultation bilaterally Cardio: Rate: regular rate Rhythm: regular rhythm Heart sounds: S1 normal heart sound present and S2 normal heart sound present GI: Inspection: normal to inspection
[2024-02-03] MEDS: MULTIVIT/MIN/PREN/FOL AC/IRON TABLET 1 TAB PO (07:42)
[2024-02-03] MEDS: DOCUSATE SODIUM 100 MG CAPSULE PO (07:42)
--- NOTE | 2024-02-03 07:42 | WPDANLDPN2 ---
Anes-Prog Note L&D Date/Time: 02/03/24 07:42 Comfortable throughout: labor and delivery Neuraxial method: epidural Epidural/Spinal procedure site: clean & non-tender Neuro status: Neuro function grossly intact. Cardiovascular status: normal Respiratory status: normal Airway patency: baseline Mental status: baseline Post-Op hydration status: normal Vital Signs: Last Vital Signs Temp 36.7 C 02/02/24 23:12 Pulse 63 02/02/24 23:12 Resp 18 02/02/24 23:12 BP 97/51 L 02/02/24 23:12 Pulse Ox 96 02/02/24 23:12 O2 Del Method Room Air 02/02/24 06:21 Pain score (VAS): 11/30 I/O: Intake & Output 02/02/24 02/02/24 02/03/24 15:59 23:59 07:59 Intake Total 633.3 614.6 Output Total 111 Balance 633.3 503.6 Post-procedural complaints: none Patient feedback: Patient satisfied with anesthetic care.
[2024-02-03] MEDS: ACETAMINOPHEN 325 MG TABLET 650 MG PO (07:43)
[2024-02-03 07:55] VITALS: BP 114/53; PULSE 60; RESP 16; TEMP 36.9; O2SAT 100
[2024-02-03 12:07] VITALS: BP 111/70; PULSE 75; RESP 16; TEMP 37.1; O2SAT 100
[2024-02-03] MEDS: RHO(D) IMMUNE GLOBULIN 300 MCG/2 ML SYRINGE IM (15:47)
--- NOTE | 2024-02-03 15:53 | PC.NURSE ---
[id number] Mother verbalizes she is able to independently latch with appropriate positioning and alignment. She denies any nipple discomfort and is responsively . is currently meeting outcomes for weight, output, jaundice, blood sugar and feeding frequencies of 8-12 times in 24 hours. Reviewed community resources, and when to call a provider using the resource of the feeding sheet along with the mom and baby guide. Mother voiced understanding of the information shared, is confident to continue effectively her infant at home, when to call for assistance, denies any additional assistance or education at this time. Primary RN is present.
[2024-02-04 09:29] VITALS: BP 123/72; PULSE 74; RESP 18; TEMP 36.6; O2SAT 99
== END 2024-02-03 17:45 | disposition home or self-care (01) | DRG 807 ==
LOC: ANHLDR 16:28 → ANHOB2 02-03 09:47 → ANHLDR 02-06 11:34 → ANHOB2 02-06 11:34
PROVIDERS: Admitting Provider Obstetrics & Gynecology; Visit Provider Obstetrics & Gynecology
DX: O13.4 Gestational [pregnancy-induced] hypertension without significant proteinuria, complicating childbirth (principal); Z37.0 Single live birth; Z3A.39 39 weeks gestation of pregnancy
CPT/HCPCS: 36415; 80053; 84550; 85014; 85018; 85025; 85055; 85461; 86592; 86850; 86880; 86900; 86901; 90384; A9270; J2371; J2405; J2590; J2790; J2795; J7120